=== PATIENT | female | born 1950 | race Caucasian/White ===

== ENCOUNTER → 2017-05-12 | Outpatient (CLI) | payer OTHER ==
[~2017-05-12] MED LIST: ADAL20KI SQ; ADAL40PE SQ; ASPI-630 PO; FOLI0.4T2 PO; METH5TAB PO; OMEP40CA5 PO
--- NOTE | 2017-05-12 14:19 | KCIC ---
HAND BILAT 3V Indication: Polyarthralgia for 20 years. . Comparison: No comparison is available. FINDINGS: Left hand No evidence of acute fracture or bone destruction. Joint spaces and alignment are intact. Right hand No evidence of an acute fracture. No aggressive bone destruction. Joint spaces and alignment are intact. There may be some minimal degenerative change at the first metacarpophalangeal joint. IMPRESSION: No significant radiographic abnormality. Electronically signed by: Juliocesar Kahn MD (05/12/2017 2:16 PM) [facility]
--- NOTE | 2017-05-12 15:14 | KCIC ---
Examination: 3 views of the bilateral feet HISTORY: History of polyarthralgias. COMPARISON: None available FINDINGS: The tarsal bones are well aligned. There is moderate joint space loss identified in the first tarsometatarsal joint bilaterally. There is minimal hallux valgus changes of the right first toe. Mild degenerative changes identified in the tarsal joints bilaterally. No acute fracture identified. Small enthesophyte identified in the posterior and inferior calcaneus bilaterally. IMPRESSION: 1. No acute osseous findings. 2. Moderate degenerative changes bilateral first tarsal metatarsal joints. 3. Mild left hallux valgus. Electronically signed by: José Onofre MD (05/12/2017 3:11 PM) [facility]
== END | disposition home or self-care (01) ==
LOC: KCIC 12:54
PROVIDERS: ATTEND Internal Medicine Rheumatology
DX: M19.041 Primary osteoarthritis, right hand (principal); M19.042 Primary osteoarthritis, left hand; M19.071 Primary osteoarthritis, right ankle and foot; M19.072 Primary osteoarthritis, left ankle and foot; M20.12 Hallux valgus (acquired), left foot; M20.11 Hallux valgus (acquired), right foot
CPT/HCPCS: 73130; 73630

== ENCOUNTER 2017-12-03 11:04 | Emergency (ER) | payer OTHER ==
[2017-12-03 13:56] LABS: ANION GAP 41 (6-14); BLOOD UREA NITROGEN 8 mg/dL (7-20); BUN/CREATININE RATIO 10 (6-20); CALCIUM 8.2 mg/dL (8.5-10.1); CARBON DIOXIDE 21 mmol/L (21-32); CHLORIDE 86 mmol/L (98-107); CREATININE 0.8 mg/dL (0.6-1.0); GFR 71.3; GLUCOSE 105 mg/dL (70-99); POTASSIUM 3.4 mmol/L (3.5-5.1); SODIUM 148 mmol/L (136-145)
[2017-12-03 14:02] LABS: ALBUMIN 2.6 g/dL (3.4-5.0); ALBUMIN/GLOBULIN RATIO 0.7 (1.0-1.7); ALK PHOS 36 U/L (46-116); ALT (SGPT) 13 U/L (14-59); AST (SGOT) 14 U/L (15-37); TOTAL BILIRUBIN 0.7 mg/dL (0.2-1.0); TOTAL PROTEIN 6.2 g/dL (6.4-8.2)
[2017-12-03 14:04] LABS: TROPONINI < 0.017 ng/mL (0.000-0.055)
[2017-12-03 14:08] LABS: BASO % 0 % (0-3); EOS % 0 % (0-3); HEMATOCRIT 34.9 % (36.0-47.0); HEMOGLOBIN 11.5 g/dL (12.0-15.5); LYMPH # 1.2 x10^3/uL (1.0-4.8); LYMPH % 5 % (24-48); MEAN CORPUSCULAR HEMOGLOBIN 31 pg (25-35); MEAN CORPUSCULAR HGB CONC 33 g/dL (31-37); MEAN CORPUSCULAR VOLUME 95 fL (79-100); MONO # 1.3 x10^3/uL (0.0-1.1); MONO % 5 % (0-9); NEUT # 22.2 x10^3uL (1.8-7.7); NEUT % 90 % (31-73); PLATELET COUNT 222 x10^3/uL (140-400); RED BLOOD COUNT 3.69 x10^6/uL (3.50-5.40); RED CELL DISTRIBUTION WIDTH 13.7 % (11.5-14.5); WHITE BLOOD COUNT 24.7 x10^3/uL (4.0-11.0)
[2017-12-03 14:10] LABS: ADD MAN DIFF? YES
[2017-12-03] MEDS: ACETAMINOPHEN 500 MG TABLET PO (14:15)
[2017-12-03 14:29] LABS: BILIRUBIN,URINE NEGATIVE (NEG); CLARITY,URINE CLEAR; COLOR,URINE YELLOW; GLUCOSE,URINE NEGATIVE (NEG); NITRITE,URINE POSITIVE (NEG); PROTEIN,URINE NEGATIVE (NEG-TRACE); UROBILINOGEN,URINE 0.2 mg/dL (0.2 mg/dL)
[2017-12-03 14:34] LABS: BARBITURATES NEG (NEG); BENZODIAZEPINES NEG (NEG); CANNABINOIDS NEG (NEG); COCAINE NEG (NEG); METHADONE NEG (NEG); OPIATES NEG (NEG); PHENCYCLIDINE NEG (NEG)
[2017-12-03 14:36] LABS: AMPHETAMINE/METHAMPHETAMINE NEG (NEG); ETHANOL, URINE NEG (NEG)
[2017-12-03 14:51] LABS: BACTERIA,URINE MANY /HPF (0-FEW); RBC,URINE 0 /HPF (0-2); SQUAMOUS EPITHELIAL CELL,UR FEW /LPF
[2017-12-03] MEDS ORDERED: IV NORMAL SALINE 1000ML BAG 1,000 ML IV (15:00)
[2017-12-03 16:42] LABS: % BANDS 16 % (0-9); % LYMPHS 4 % (24-48); % MONOS 9 % (0-10); % SEGS 71 % (35-66)
[2017-12-03 16:43] LABS: PLT ESTIMATE ADEQUATE (ADEQUATE)
== END 2017-12-03 15:00 | disposition left against medical advice (07) ==
LOC: ER 11:04
DX: S00.81XA Abrasion of other part of head, initial encounter (principal); R55 Syncope and collapse; M54.2 Cervicalgia; R21 Rash and other nonspecific skin eruption; M79.1 Myalgia; J45.909 Unspecified asthma, uncomplicated; L40.50 Arthropathic psoriasis, unspecified; W22.09XA Striking against other stationary object, initial encounter; Y93.89 Activity, other specified; Y99.8 Other external cause status; Y92.091 Bathroom in other non-institutional residence as the place of occurrence of the external cause
CPT/HCPCS: 36415; 70450; 71045; 72125; 80053; 80307; 81001; 84484; 85007; 85025; 87086; 87186; 93005; 99285-25

== ENCOUNTER 2018-09-13 09:32 | Emergency (ER) | payer MEDICARE ==
[~2018-09-13] VITALS: Ht 157.5 cm; Wt 82.1 kg
[2018-09-13 10:05] LABS: BASO # 0.1 x10^3/uL (0.0-0.2); BASO % 1 % (0-3); EOS # 0.7 x10^3/uL (0.0-0.7); EOS % 8 % (0-3); HEMATOCRIT 39.6 % (36.0-47.0); HEMOGLOBIN 13.5 g/dL (12.0-15.5); LYMPH # 2.6 x10^3/uL (1.0-4.8); LYMPH % 26 % (24-48); MEAN CORPUSCULAR HEMOGLOBIN 32 pg (25-35); MEAN CORPUSCULAR HGB CONC 34 g/dL (31-37); MEAN CORPUSCULAR VOLUME 92 fL (79-100); MONO # 0.9 x10^3/uL (0.0-1.1); MONO % 9 % (0-9); NEUT # 5.6 x10^3uL (1.8-7.7); NEUT % 56 % (31-73); PLATELET COUNT 226 x10^3/uL (140-400); RED BLOOD COUNT 4.29 x10^6/uL (3.50-5.40); RED CELL DISTRIBUTION WIDTH 12.2 % (11.5-14.5); WHITE BLOOD COUNT 9.9 x10^3/uL (4.0-11.0)
[2018-09-13] MEDS: NITROGLYCERIN SUBLINGUAL 0.4 MG BOTTLE OF 25. SL PRN ×2 (10:11→10:20)
[2018-09-13] MEDS ORDERED: ASPIRIN CHEWABLE 81 MG TABLET. PO ONE (10:15)
[2018-09-13 10:16] LABS: CALCIUM 9.7 mg/dL (8.5-10.1); CREATININE 0.9 mg/dL (0.6-1.0); GFR 62.1; POTASSIUM 3.9 mmol/L (3.5-5.1)
--- NOTE | 2018-09-13 10:19 | PHYS DOC ---
Past Medical History Past Medical History: Arthritis, Asthma Additional Past Medical Histor: RA, psoriatic arthritis,osteoarthritis Past Surgical History: Hysterectomy, Other Additional Past Surgical Histo: CATRACT BILAT,L CARPAL TUNNEL,L MENISCUS REPAIR Additional Information: Denies a smoking Alcohol Use: Rarely Drug Use: None Adult General Chief Complaint Chief Complaint: CHEST PAIN HPI HPI Patient is a 68 year old female who presents with complaining of chest pain. Patient states she woke up at 20 a.m. with substernal aching chest pain with radiation to her jaw associated with marked shortness of breath and nausea that resolved after about 20 minutes. Patient states her pain was about 8/10. Patient states she woke up again around 9 AM with the same pain after she had a nightmare regarding her breast augmentation surgery that is scheduled for next week. Patient denies any cardiac risk factors and states she had unremarkable physical exam and labs recently. Review of Systems Review of Systems Constitutional: Denies fever or chills [] Eyes: Denies change in visual acuity, redness, or eye pain [] HENT: Denies nasal congestion or sore throat [] Respiratory: Denies cough or shortness of breath [] Cardiovascular: No additional information not addressed in HPI [] GI: Denies abdominal pain, nausea, vomiting, bloody stools or diarrhea [] : Denies dysuria or hematuria [] Musculoskeletal: Denies back pain or joint pain [] Integument: Denies rash or skin lesions [] Neurologic: Denies headache, focal weakness or sensory changes [] Endocrine: Denies polyuria or polydipsia [] All other systems were reviewed and found to be within normal limits, except as documented in this note. Current Medications Current Medications Current Medications Medications (Trade) Dose Ordered Sig/Agatha Start Time Stop Time Status Last Admin Dose Admin Aspirin (Children'S Aspirin) 324 mg 1X ONCE 09/13/18 10:15 09/13/18 10:16 DC 09/13/18 10:09 324 MG Info (CONTRAST GIVEN -- Rx MONITORING) 1 each PRN DAILY PRN 09/13/18 12:00 09/15/18 11:59 Iohexol (Omnipaque 300 Mg/ml) 100 ml 1X ONCE 09/13/18 12:00 09/13/18 12:01 DC Ketorolac Tromethamine (Toradol 30mg Vial) 30 mg 1X ONCE 09/13/18 11:45 09/13/18 11:46 DC 09/13/18 12:14 30 MG Nitroglycerin (Nitrostat) 0.4 mg PRN Q5MIN PRN 09/13/18 10:15 09/13/18 10:20 0.4 MG Sodium Chloride 1,000 ml @ 1,000 mls/hr 1X ONCE 09/13/18 10:30 09/13/18 11:29 DC 09/13/18 10:35 1,000 MLS/HR Allergies Allergies Allergies Coded Allergies Type Severity Reaction Last Updated Verified No Known Drug Allergies 09/13/18 No Physical Exam Physical Exam Constitutional: Well developed, well nourished, mild distress, non-toxic appearance. [] HENT: Normocephalic, atraumatic Eyes: PERRLA, EOMI, conjunctiva normal, no discharge. [] Neck: Normal range of motion, no tenderness, supple, no stridor. [] Cardiovascular: Tachycardia, no murmur [] Lungs & Thorax: Bilateral breath sounds clear to auscultation, mild reproducible sternal pain [] Abdomen: Bowel sounds normal, soft, no tenderness, no masses, no pulsatile masses. [] Skin: Warm, dry, no erythema, no rash. [] Back: No tenderness, no CVA tenderness. [] Extremities: No tenderness, no cyanosis, no clubbing, ROM intact, no edema. [] Neurologic: Alert and oriented X 3, normal motor function, normal sensory function, no focal deficits noted. [] Psychologic: Affect anxious, judgement normal, mood normal. [] Current Patient Data Vital Signs Vital Signs Date Time Temp Pulse Resp B/P (MAP) Pulse Ox O2 Delivery O2 Flow Rate FiO2 09/13/18 10:20 106 134/64 09/13/18 09:32 98.1 20 98 Room Air 98.1 Lab Values Laboratory Tests Test 09/13/18 09:50 09/13/18 11:45 White Blood Count 9.9 x10^3/uL (4.0-11.0) Red Blood Count 4.29 x10^6/uL (3.50-5.40) Hemoglobin 13.5 g/dL (12.0-15.5) Hematocrit 39.6 % (36.0-47.0) Mean Corpuscular Volume 92 fL (79-100) Mean Corpuscular Hemoglobin 32 pg (25-35) Mean Corpuscular Hemoglobin Concent 34 g/dL (31-37) Red Cell Distribution Width 12.2 % (11.5-14.5) Platelet Count 226 x10^3/uL (140-400) Neutrophils (%) (Auto) 56 % (31-73) Lymphocytes (%) (Auto) 26 % (24-48) Monocytes (%) (Auto) 9 % (0-9) Eosinophils (%) (Auto) 8 % (0-3) H Basophils (%) (Auto) 1 % (0-3) Neutrophils # (Auto) 5.6 x10^3uL (1.8-7.7) Lymphocytes # (Auto) 2.6 x10^3/uL (1.0-4.8) Monocytes # (Auto) 0.9 x10^3/uL (0.0-1.1) Eosinophils # (Auto) 0.7 x10^3/uL (0.0-0.7) Basophils # (Auto) 0.1 x10^3/uL (0.0-0.2) D-Dimer (Leslie) 0.93 ug/mlFEU (0.00-0.50) H Sodium Level 144 mmol/L (136-145) Potassium Level 3.9 mmol/L (3.5-5.1) Chloride Level 107 mmol/L (98-107) Carbon Dioxide Level 27 mmol/L (21-32) Anion Gap 10 (6-14) Blood Urea Nitrogen 15 mg/dL (7-20) Creatinine 0.9 mg/dL (0.6-1.0) Estimated GFR (Cockcroft-Gault) 62.1 BUN/Creatinine Ratio 17 (6-20) Glucose Level 115 mg/dL (70-99) H Calcium Level 9.7 mg/dL (8.5-10.1) Magnesium Level 1.8 mg/dL (1.8-2.4) Total Bilirubin 0.5 mg/dL (0.2-1.0) Aspartate Amino Transferase (AST) 15 U/L (15-37) Alanine Aminotransferase (ALT) 18 U/L (14-59) Alkaline Phosphatase 50 U/L (46-116) Creatine Kinase 36 U/L (26-192) Creatine Kinase MB (Mass) < 0.5 ng/mL (0.0-3.6) Creatine Kinase MB Relative Index % (0-4) Troponin I Quantitative < 0.017 ng/mL (0.000-0.055) < 0.017 ng/mL (0.000-0.055) OR-Qpn-T-Type Natriuretic Peptide 145 pg/mL (0-124) H Total Protein 7.4 g/dL (6.4-8.2) Albumin 3.5 g/dL (3.4-5.0) Albumin/Globulin Ratio 0.9 (1.0-1.7) L Lipase 68 U/L (73-393) L Laboratory Tests 09/13/18 09:50 Laboratory Tests 09/13/18 09:50 EKG EKG EKG interpreted by me. EKG at 0 937 showed sinus tachycardia at rate of 102, left atrial abnormalities, no acute ST and T-wave abnormalities. Radiology/Procedures Radiology/Procedures [address] [id number] IMAGING REPORT Signed PATIENT: EDDIE SANDHU ACCOUNT: [id number] : 1950 LOCATION: ER AGE: 68 SEX: F EXAM STATUS: REG ER ORD. PHYSICIAN: EARNESTINE BUTTS MD REASON: chest pain, elevated d-dimer PROCEDURE: CT ANGIOGRAPHY CHEST Examination: CT ANGIOGRAPHY CHEST History: CHEST PAIN ELEV D-DIMER OMNI 300 100ML Comparison/Correlation: None Findings: Axial images of the chest were obtained with IV contrast. Exam was performed according to pulmonary arteriography protocol. MIP images were provided. Pulmonary arterial vasculature is normal with no thromboembolic disease. Thoracic aorta is unremarkable for the patient's age. No focal infiltrate or effusion. No suspicious pulmonary nodule or mass. Small hiatal hernia is present. Impression: No pulmonary arterial thromboembolic disease. Small hiatal hernia. Electronically signed by: Giles Warren MD (09/13/2018 12:22 PM) [id number] DICTATED and SIGNED BY: RUBEN NOLAN MD DATE: 09/13/[address] [place] [address] IMAGING REPORT Signed PATIENT: EDDIE SANDHU ACCOUNT: [id number] : 1950 LOCATION: ER AGE: 68 SEX: F EXAM STATUS: REG ER ORD. PHYSICIAN: EARNESTINE BUTTS MD REASON: chest pain PROCEDURE: PORTABLE CHEST 1V EXAM: CHEST 1 VIEW History: Chest pain COMPARISON: 12/03/2017 TECHNIQUE: Single portable radiograph of the chest FINDINGS: The cardiac silhouette is unremarkable. Mild prominent appearing bilateral interstitial lung markings similar to prior exam. The costophrenic sulci are clear and well demarcated. IMPRESSION: No radiographic evidence of an acute cardiopulmonary process. Electronically signed by: José Onofre MD (09/13/2018 10:16 AM) [facility] DICTATED and SIGNED BY: JOSÉ ONOFRE MD DATE: 09/13/18 1014 Course & Med Decision Making Course & Med Decision Making Pertinent Labs and Imaging studies reviewed. (See chart for details) Evaluation of patient in ER showed 68-year-old female patient with a cardiac defect presented with episodes of chest pain since this morning. Patient states she had stressful condition recently for her future surgery. Mild anxiety with blood pressure of 190s at arrival to ER that improved gradually. Patient treated with nitroglycerin 1 and her blood pressure dropped to 80s and heart rate 240s and treated with IV fluid with improvement of heart rate to 80s and blood pressure to 140s. Patient instructed to record her blood pressure and follow up with her primary care physician. Patient had 2 sets of negative cardiac enzyme and negative CT of chest for PE. Patient treated with Toradol and the pain resolved. Patient instructed to follow up with her primary care physician regarding chest pain. Dragon Disclaimer Dragon Disclaimer This electronic medical record was generated, in whole or in part, using a voice recognition dictation system. Departure Departure Impression: Primary Impression: Non-cardiac chest pain Additional Impressions: Elevated d-dimer Anxiety Disposition: HOME, SELF-CARE (at 1239) Condition: IMPROVED Referrals: TRISTIAN DEJESUS (PCP) Patient Instructions: Anxiety and Panic Attacks, Chest Pain (Nonspecific) Additional Instructions: Drink plenty of liquids Follow-up with your primary care physician in 3-5 days Return to ER if not getting better Problem Qualifiers EARNESTINE BUTTS MD Sep 13, 2018 10:19
[2018-09-13 10:22] LABS: ALBUMIN 3.5 g/dL (3.4-5.0); ALBUMIN/GLOBULIN RATIO 0.9 (1.0-1.7); MAGNESIUM 1.8 mg/dL (1.8-2.4); TOTAL BILIRUBIN 0.5 mg/dL (0.2-1.0); TOTAL PROTEIN 7.4 g/dL (6.4-8.2)
[2018-09-13] MEDS ORDERED: IV NORMAL SALINE 1000ML BAG 1,000 ML IV ONE (10:30)
[2018-09-13 10:41] LABS: CREATINE KINASE 36 U/L (26-192)
--- NOTE | 2018-09-13 11:26 | EKG ---
[facility] [address] [place] [address] Test Date: 2018-09-13 Test Time: 09:37:14 Pat Name: EDDIE SANDHU Department: Room: Gender: F [employer] Machine: : 1950 Requested By: EARNESTINE BUTTS Order Number: [id number] Reading MD: Dagoberto Garcia Measurements Intervals [place] Rate: 102 P: 45 IL: 120 QRS: 29 QRSD: 80 T: 41 QT: 304 QTc: 400 Interpretive Statements SINUS TACHYCARDIA LEFT ATRIAL ABNORMALITY NONSPECIFIC ST-T WAVE CHANGES Electronically Signed On 09-19-2018 14:27:50 [employer]ING OPERATOR by Dagoberto Garcia
[2018-09-13] MEDS ORDERED: KETOROLAC 30 MG/ML VIAL. IV ONE (11:45)
[2018-09-13] MEDS ORDERED: IOHEXOL 300 MG/ML 100ML VIAL. IV ONE (12:00)
[2018-09-13] MEDS ORDERED: CONTRAST GIVEN. MC PRN (12:00)
--- NOTE | 2018-09-13 12:26 | RAD ---
Examination: CT ANGIOGRAPHY CHEST History: CHEST PAIN ELEV D-DIMER OMNI 300 100ML Comparison/Correlation: None Findings: Axial images of the chest were obtained with IV contrast. Exam was performed according to pulmonary arteriography protocol. MIP images were provided. Pulmonary arterial vasculature is normal with no thromboembolic disease. Thoracic aorta is unremarkable for the patient's age. No focal infiltrate or effusion. No suspicious pulmonary nodule or mass. Small hiatal hernia is present. Impression: No pulmonary arterial thromboembolic disease. Small hiatal hernia. Electronically signed by: Giles Warren MD (09/13/2018 12:22 PM) [id number]
[2018-09-13 12:30] VITALS: BP 148/71
== END 2018-09-13 12:55 | disposition home or self-care (01) ==
LOC: ER 09:32
DX: R07.9 Chest pain, unspecified (principal); R79.1 Abnormal coagulation profile; F41.9 Anxiety disorder, unspecified; J45.909 Unspecified asthma, uncomplicated; M19.90 Unspecified osteoarthritis, unspecified site
CPT/HCPCS: 36415; 71045; 71275; 80053; 82553; 83690; 83735; 83880; 84484; 85025; 85379; 93005; 96374; 99284; J1885; J7030